=== PATIENT | male | born 1965 | race Caucasian/White ===

== ENCOUNTER 2018-07-21 06:56 | Observation (INO) ==
[2018-07-21] MEDS ORDERED: Bupivacaine/Epinephrine Inj 0.25% 50 ML Vial ONE (07:01)
[2018-07-21] MEDS ORDERED: Ketamine Inj 50 MG/5 ML Syringe IV.PUSH ONE (07:39)
[2018-07-21] MEDS ORDERED: Famotidine PF Inj 20 MG/2 ML Vial ONE (07:44)
[2018-07-21] MEDS ORDERED: Sodium Chlor 0.9% Inj 250 ML ONE (07:45)
[2018-07-21] MEDS ORDERED: Metoprolol Tartrate 25 MG Tablet PO ONE (07:49)
[2018-07-21] MEDS ORDERED: Famotidine PF Inj 20 MG/2 ML Vial IV.PUSH ONE (08:00)
[2018-07-21] MEDS ORDERED: ceFAZolin 2 GM Premix Inj 2 GM/50 ML PIGGYBACK IV.SIG SCH (08:00)
[2018-07-21] MEDS ORDERED: Vancomycin Inj 1,000 MG in Sodium Chlor 0.9% Inj 250 ML IV.SIG SCH (08:00)
[2018-07-21] MEDS ORDERED: Sodium Chlor 0.9% Inj 500 ML IV.SIG SCH (08:00)
[2018-07-21] MEDS ORDERED: Neostigmine Inj 5 MG/5 ML Syringe IV.PUSH ONE (09:30)
[2018-07-21] MEDS ORDERED: Lidocaine PF 1% Inj 5 ML Syringe OTHER ONE (09:30)
[2018-07-21] MEDS ORDERED: Glycopyrrolate Inj 1 MG/5 ML Syringe IV.PUSH ONE (09:30)
[2018-07-21] MEDS ORDERED: Phenylephrine/NS 1000 MCG/10ML Syringe IV.PUSH ONE (09:30)
--- NOTE | 2018-07-21 11:39 | P.OP ---
Preoperative Diagnosis: Herniated nucleus pulposus C4-5, central. Spinal cord compression, C4-5. Status post ACDF C5-6 and C6-7. Cervical radiculopathy Postoperative Diagnosis: Same Date of procedure: 07/21/18 Procedure: Anterior cervical discectomy decompression with bilateral foraminotomies, C4-5. Left anterior iliac crest bone graft Anesthesia: GETA Surgeon: Saravanan Martin MD Regional Clinical Research Associate: RU Maria Operation and Findings: EBL: 25 cc INDICATIONS: This patient is a 53-year-old male with significant neck and arm pain. Investigative studies show evidence of a previously fused C5-6 and C6-7 levels. There is evidence of a central disc herniation at C4-5 with spinal cord compression. He presents for surgical treatment. NOTE: Katty Maria PA-C was present for the entire surgical procedure as my first dyer. In my medical opinion her skill and care was necessary for proper management of this patient PROCEDURE: The patient was brought to the operating room and anesthetized in the supine position. This patient was positioned supine on the radiolucent table. All pressure points were protected in the anterior cervical spine and iliac crest was scrubbed with alcohol followed by Hibiclens followed by ChloraPrep. A timeout was done and antibiotics were given within 1 hour time window. Lateral radiographic images were used identifying the proper level. A right anterior incision was made in line with skin creases. The platysma was opened in line with the incision. Deep dissection continued in the interval between the carotid sheath and the esophagus. The longus-coli muscles were lifted on both sides and retractors were positioned allowing good exposure. Lateral radiographic images were used to identify the proper level. [place] style interosseous pins were placed at C4 and C5 allowing exposure to that level. The microscope was rolled into the field. A total discectomy was accomplished and posterior osteophytes were removed. The posterior longitudinal ligament and annulus was taken down. Bilateral foraminotomies were accomplished. The endplates were squared up anticipating later bone grafting. A blunt probe could be placed out each foramen without evidence of nerve root compromise. The left iliac crest was approached. A small stab incision was made allowing percutaneous access to the anterior iliac crest. Multiple cores of cancellous bone were harvested and taken to the back table to be used for later bone grafting. The wound was irrigated anesthetized and closed with 4-0 Vicryl followed by Dermabond. The case was turned over to Dr. Azeem Martin for fusion and instrumentation per his dictation. FINDINGS: There was evidence of a moderate to large central disc herniation posterior to the annulus and posterior longitudinal ligament creating spinal cord compression. The decompression was very satisfactory. There was no complication that was appreciated NOTE: This surgery was performed in 2 parts. The first part was the neurosurgical decompression performed under the variable power stereo microscope by the undersigned in addition to the bone graft. The second portion of the surgery will be performed by the orthopedic spine component by co -surgeon, Dr. Azeem Martin for the anterior fusion with interbody cage and anterior plate. The skill of 2 surgeons was necessary to perform distinct separate procedural services as dictated above and dictated in the following operative note by Dr. Azeem Martin.
--- NOTE | 2018-07-21 12:45 | ECHRPT ---
Indication: CHEST PAIN CONCLUSIONS The left ventricular systolic function is normal with an estimated ejection fraction in the range of 60-65%. Normal left ventricular size. Wall thickness is normal. No regional wall motion abnormalities are present. BP: / HR: Rhythm: Sinus MEASUREMENTS (Male / Female) Normal Values Technical Quality:Good 2D ECHO LV Diastolic Diameter PLAX 4.8 cm 4.2 - 5.9 / 3.9 - 5.3 cm LV Systolic Diameter PLAX 3.3 cm IVS Diastolic Thickness 1.3 cm 0.6 - 1.0 / 0.6 - 0.9 cm LVPW Diastolic Thickness 1.3 cm 0.6 - 1.0 / 0.6 - 0.9 cm LV Relative Wall Thickness 0.5 LVOT Diameter 2.0 cm LV Ejection Fraction MOD 4C 63.2 % LV Ejection Fraction 4C AL 64.6 % M-MODE Aortic Root Diameter MM 3.2 cm LA Systolic Diameter MM 3.0 cm LA Ao Ratio MM 0.9 AV Cusp Separation MM 2.0 cm DOPPLER AV Peak Velocity 109.0 cm/s AV Peak Gradient 4.8 mmHg LVOT Peak Velocity 88.8 cm/s LVOT Peak Gradient 3.2 mmHg AV Area Cont Eq pk 2.6 cm MV Area PHT 4.5 cm Mitral E Point Velocity 84.4 cm/s Mitral A Point Velocity 68.3 cm/s Mitral E to A Ratio 1.2 LV E' Lateral Velocity 6.8 cm/s Mitral E to LV E' Lateral Ratio 12.4 LV E' Septal Velocity 6.4 cm/s Mitral E to LV E' Septal Ratio 13.1 PV Peak Velocity 92.3 cm/s PV Peak Gradient 3.4 mmHg FINDINGS LEFT VENTRICLE The left ventricular systolic function is normal with an estimated ejection fraction in the range of 60-65%. Normal left ventricular size. Wall thickness is normal. No regional wall motion abnormalities are present. RIGHT VENTRICLE Normal right ventricular size and systolic function. LEFT ATRIUM The left atrial size is normal. RIGHT ATRIUM The right atrial size is normal. ATRIAL SEPTUM Normal atrial septal thickness without atrial level shunting by limited color doppler interrogation. AORTA The aortic root and proximal ascending aorta are normal in size on limited imaging. MITRAL VALVE Structurally normal mitral valve. No mitral valve stenosis or regurgitation. AORTIC VALVE Trileaflet aortic valve. No aortic valve stenosis or regurgitation. TRICUSPID VALVE Structurally normal tricuspid valve. No tricuspid valve stenosis or regurgitation. PULMONARY VALVE The pulmonary valve is not well visualized. VESSELS The inferior vena cava is normal in size. PERICARDIUM No pericardial effusion. Zach Merritt MD, FACC (Electronically Signed) Final Date:21 July 2018 12:44
[2018-07-21] MEDS ORDERED: clonazePAM 0.5 MG Tablet PO PRN (12:48)
--- NOTE | 2018-07-21 12:50 | XR ---
EXAM DATE: 07/21/2018 12:00 AM EDT AGE/SEX: 53 years / Male INDICATIONS: Herniated disk, hardware placement. CLINICAL DATA: This is the patient's initial encounter. Patient reports that signs and symptoms have been present for 1 day and indicates a pain score of 0/10. MEDICAL/SURGICAL HISTORY: None. None. COMPARISON: No prior exams available for comparison. FINDINGS: The patient is status post anterior cervical fusion at what appears to be the C4-5 level. There is miranda ne grafting material and 2 small markers in the interspace. Temperature probe and endotracheal tube a re present. CONCLUSION: There is post anterior cervical fusion at what appears to be the C4-5 level. Electronically signed by: Vasile Geiger MD 07/21/2018 12:48 PM EDT
[2018-07-21] MEDS ORDERED: Zolpidem Tartrate 5 MG Tablet PO PRN (12:51)
[2018-07-21] MEDS ORDERED: Post-op Orders (for Pharmacy) OTHER STA (12:51)
[2018-07-21] MEDS ORDERED: Bisacodyl 10 MG Supp RECTAL PRN (12:51)
--- NOTE | 2018-07-21 13:02 | P.BOP ---
- Preoperative Diagnosis (1) Herniated nucleus pulposus, cervical - Postoperative Diagnosis (1) Herniated nucleus pulposus, cervical Date of procedure: 07/21/18 Procedure: C4-5 AIF,ACC,ASI Anesthesia: GETA Surgeon: Azeem Martin MD Marketing Consultant: Danni Neal Estimated blood loss (mL): 50 Condition: stable Disposition: PACU
[2018-07-21] MEDS ORDERED: fentaNYL Citrate Inj 100 MCG/2 ML Ampul ONE (13:26)
[2018-07-21] MEDS ORDERED: *Meperidine Inj 25 MG/ML Vial PERIprocedural Use ONLY ONE (13:40)
[2018-07-21] MEDS ORDERED: *Ondansetron Inj 4 MG/2 ML Vial PERIprocedural Use ONLY ONE (13:41)
[2018-07-21] MEDS ORDERED: *morphine SULFATE 4 MG/ML PERIprocedure ONLY ONE (13:59)
--- NOTE | 2018-07-21 15:03 | MP ---
cc: Azeem Martin MD Aga Corona DATE OF OPERATION: 07/21/2018 PREOPERATIVE DIAGNOSES: 1. C4-C5 herniated nucleus pulposus, osteophyte disk complex. 2. Status post C5-C6 anterior cervical diskectomy and fusion 2002. 3. Status post C6-C7 anterior cervical diskectomy anterior implantation [address] Dow. 4. Cervical spine degenerative disk disease and osteoarthritis. 5. Right greater than left cervical radiculitis with right upper extremity weakness. POSTOPERATIVE DIAGNOSES: 1. C4-C5 herniated nucleus pulposus, osteophyte disk complex. 2. Status post C5-C6 anterior cervical diskectomy and fusion 2002. 3. Status post C6-C7 anterior cervical diskectomy anterior implantation [address] Dow. 4. Cervical spine degenerative disk disease and osteoarthritis. 5. Right greater than left cervical radiculitis with right upper extremity weakness. PROCEDURE PERFORMED: C4-C5 anterior interbody fusion, C4-C5 ACC anterior cervical cage; C4-C 5 SpineNet Rhausler anterior spine rotation. SURGEON: Azeem Martin MD SEISMOGRAPH OPERATOR: STEPHIE Trinidad ESTIMATED BLOOD LOSS: 50 mL for the entire case. ANESTHESIA: General. DRAINS: None. COMPLICATIONS: None. SPECIMENS: None. PLAN: Activities as per orders. PROCEDURE: Saravanan Martin and myself were cosurgeons. Dr. Saravanan Martin performed C4-C5 exposure and decompression using the operating microscope. He performed the neurosurgical decompression and C4-C5 anterior cervical diskectomy and decompression, also performed anterior iliac crest bone grafting. I was not present for his portion of the procedure. As the cosurgeon I performed the above-mentioned operative procedure. My assurance assistant, Danni Neal PA-C, was present for the entire surgical case. She was medically necessary for my portion of the case because of the complexity of the case and to facilitate the performance of the procedure. The DIETARY SERVER at the back table did not have the skill set for this case to manipulate the instruments, e.g. multiple different types of soft tissue retractors, trial implants and permanent implants. Following Dr. Saravanan Martin's surgical procedure, the endplates were prepared for fusion at C4-C5. The hyaline cartilage endplates were removed using angled curettes and burs. A seven 10 x 12 ACCK were placed in the interspace. Anterior crest bone grafting was used under fluoroscopic guidance for interbody fusion at C4-C5. Scar tissue and anterior osteophytes were removed at the C4-C5 interspace. They were removed with a sharp instrumentations and with rongeurs of burs. A 25 mm length SpineNet Rhausler plate was used for anterior spinal instrumentation. Initially 2 tacks were used to position the plate appropriately. It was also contoured to the patient's normal cervical lordosis. Under fluoroscopic guidance the plate was found to be in satisfactory position. Two screws were used in the body of C4 and C5. Each screw was drilled and each screw was 14 mm length, 4.0 mm outer diameter fixed angle screws. Each screw was appropriately inserted into the vertebral bodies and each screw head was appropriately locked to the plate. Intraoperative fluoroscopy AP and lateral plane confirmed satisfactory position of bone graft at C4-C5 and satisfactory position of the SpineNet ACC cage at C4-C5 and satisfactory position of instrumentation at C4-C5. The wound was irrigated with copious amounts of sterile saline antibiotic solution. The wound itself was dry. It was closed in multiple layers using 3-0 Vicryl suture. Skin was approximated with running subcuticular 4-0 Vicryl suture. Dermabond placed over the incision. Sterile dressings were applied. The patient was placed in a Watson cervical brace. The patient tolerated the procedure well and was taken to the recovery room in stable and satisfactory condition. MD VINICIUS SunG/deborah , 12:56 PM , 01:08 PM DES
--- NOTE | 2018-07-21 15:23 | ECG ---
Date Performed: 07/21/2018 Time Performed: 08:14:24 PTAGE: 53 years EKG: Sinus rhythm NORMAL ECG NO PREVIOUS TRACING DOCTOR: Asuncion Jensen Interpretating Date/Time 07/21/2018 15:22:55
[2018-07-21] MEDS: Methocarbamol 500 MG Tablet PO SCH (17:40)
[2018-07-21] MEDS: Senna/Docusate Sodium 8.6/50 MG Tablet PO SCH (21:05)
[2018-07-21] MEDS: Morphine Inj 4 MG/ML Vial IV.PUSH PRN (21:05)
[2018-07-22] MEDS ORDERED: Phenol 1.4% 180 ML Spray Bottle OROPHARYNG PRN (00:15)
[2018-07-22] MEDS: Methocarbamol 500 MG Tablet PO SCH (01:44)
[2018-07-22] MEDS: Morphine Inj 4 MG/ML Vial IV.PUSH PRN (04:07)
[2018-07-22 04:14] VITALS: RESP 18
--- NOTE | 2018-07-22 07:00 | P.PNOP ---
Subjective Interval history: pt complains of post operative neck pain and sore throat states his arm pain is improved but did have mild numbness and tingling involving his left hand last night denies any chest pain, no SOB Physical Exam Vital signs: Vital Signs 07/21/18 07:45 07/21/18 13:12 07/21/18 13:15 Temperature 97.6 F 97.4 F L Pulse Rate 80 90 91 H Respiratory Rate 24 20 17 Blood Pressure 118/75 133/80 131/77 Pulse Oximetry 99 94 L 93 L 07/21/18 13:30 07/21/18 13:45 07/21/18 14:00 Temperature Pulse Rate 90 87 92 H Respiratory Rate 15 16 14 Blood Pressure 139/85 125/69 125/73 Pulse Oximetry 94 L 96 95 07/21/18 14:12 07/21/18 16:00 07/21/18 20:00 Temperature 98.2 F 97.4 F L 97.5 F L Pulse Rate 90 91 H 94 H Respiratory Rate 15 20 20 Blood Pressure 127/73 108/60 105/64 Pulse Oximetry 95 92 L 95 07/22/18 00:00 07/22/18 04:00 Temperature 97.5 F L 97.6 F Pulse Rate 75 80 Respiratory Rate 20 18 Blood Pressure 113/63 104/63 Pulse Oximetry 92 L 95 Intake & Output 07/21/18 07/21/18 07/22/18 06:59 18:59 06:59 Intake Total 400 / 400 300 / 300 Output Total 400 / 400 1000 / 1000 Balance 0 / 0 -700 / -700 Weight 100 kg 100 kg Intake: IV 400 / 400 300 / 300 LR 1000 mL Inj 1,000 ML @ 30 300 / 300 mls/hr IV.SIG .Q24H PABLO Rx#: [id number] Ancef Inj 1,000 MG In NS Inj 100 / 100 300 / 300 100 ML @ 200 mls/hr IV.SIG Q6H PABLO Rx#:[id number] Output: Urine 350 / 350 1000 / 1000 Estimated Blood Loss 50 / 50 Other: Date of Last Bowel Movement 07/20/18 07/20/18 Weight On Admission 100 kg Narrative: also seen by Dr. Azeem Martin family member sleeping in room [place] collar in place dressing dry and intact motor is +5/5 to UE Results - Imaging Impressions Cervical Spine X-Ray 07/21/18 00:00 CONCLUSION: There is post anterior cervical fusion at what appears to be the C4-5 level. Assessment and Plan - Assessment and Plan POD # 1 s/p C 4-5 ACDF [place] collar x 8 weeks d/c evelio, put on percocet 5 mg for here and will be discharged on percocet 7.5 mg (hx of chronic pain, has previously been on percocet 10 and MS) follow up in office as scheduled orthopedically stable
[2018-07-22] MEDS: Senna/Docusate Sodium 8.6/50 MG Tablet PO SCH (08:27)
[2018-07-22 08:59] VITALS: BP 117/62; PULSE 88; TEMP 98.2; O2SAT 92
--- NOTE | 2018-07-22 08:59 | P.CON ---
History of Present Illness Service: [facility] Consult date: 07/22/18 Requesting Physician: Saravanan Martin Reason for Consult: MEDICAL MANAGEMENT Primary Care Provider: Aga Corona Chief Complaint: arm numbness, back pain History of Present Illness: Mr. Gordon is a 53-year-old man with significant past medical history of central disc herniation at C4-C5 with spinal cord compression. Patient was admitted for elective surgery, underwent anterior cervical discectomy decompression with bilateral foraminotomies, C4-5 and Left anterior iliac crest bone graft on 07/21. Patient has cervical collar in place, complaints of some numbness to left arm in anterior neck pain. Patient with significant past medical history of sleep apnea does not use CPAP, hypertension, recent intermittent angina. Indicates that he went to see his primary care physician about 3 weeks ago due to angina and was prescribed nitro as needed. He had an EKG done that was negative. His last episode of chest discomfort was 3 days ago, he has not had any episodes during this hospitalization. He is due to see a special education educational assistant in another week. Because of reported angina, anesthesia order an echocardiogram. Echocardiogram was done, EF 60-65%, no abnormalities noted. Indicates that chest pain is usually at rest, and was relieved by nitro, no radiation, no other associated symptoms. EKG was done preop which was negative. Indicates he has history of hypertension but does not take his medication regularly. At this time, he denies any chest pain, no shortness of breath. No recent fever, no chills. Does have urinary frequency, complaining of constipation at this time. Indicates that he quit smoking about a week ago. No significant cough, no wheezing. He has been cleared for discharge today. Hospitalist services are requested for medical management. Review of Systems All other systems reviewed negative except as stated in HPI PMFSH - History History Provided By: Patient - Medical History Medical History: Medical History (Last Updated 07/22/18 @ 10:52 by PAOLO Saenz) Angina at rest Anxiety Arthritis Back pain Bipolar 2 disorder Chest pain Depression Dizziness Fibromyalgia Hypertension Joint pain Neck pain Shortness of breath Sleep apnea Wears glasses - Surgical History Surgical History: Surgical History (Last Reviewed 07/22/18 @ 08:59 by PAOLO Saenz) History of carpal tunnel surgery of left wrist History of vertebroplasty Hx of fusion of cervical spine - Family History Family History: Family History (Last Updated 07/22/18 @ 10:53 by PAOLO Saenz) Mother Diabetes Alzheimer's dementia Father Colon cancer Prostate cancer - Social History I have reviewed the patient's Social History: Yes - Tobacco History Second Hand Smoke Exposure: Yes Tobacco Use In Past 30 Days: Yes Smoking Status: Former smoker Tobacco Type: Cigarettes (Quit smoking 1 week ago, smoked half a pack for 25+ years) - Alcohol History How Often Do You Have a Drink Containing Alcohol: 2 to 4 times a month - Substance Use History Substance History: No History of Abuse - Travel History Recent Travel in the [place] Within the Last 8 Weeks: No Recent Travel Out of the Country Within the Last 8 Weeks: No - Immunization History Hx Influenza Vaccine This Season: No Medications and Allergies Active Medications: Active Medications Al Hydroxide/Mg Hydroxide (Milk Of Magnesia Liq) 30 ml PO BID PRN PRN Reason: Mild Constipation Bisacodyl (Dulcolax Supp) 10 mg RECTAL DAILY PRN PRN Reason: SEVERE CONSITIPATION Clonazepam (Klonopin) 0.5 mg PO HS PRN PRN Reason: Sleep Last Admin: 07/21/18 21:05 Dose: 0.5 mg Cyclobenzaprine HCl (Flexeril) 5 mg PO Q8HR [facility] Last Admin: 07/22/18 06:19 Dose: 5 mg Fluoxetine HCl (Prozac) 40 mg PO DAILY [facility] Last Admin: 07/22/18 08:26 Dose: 40 mg Sodium Chloride (Ns Inj) 500 mls @ 30 mls/hr IV.SIG .Q10H [facility] Last Admin: 07/22/18 01:07 Dose: Not Given Cefazolin Sodium/Dextrose (Ancef 2 Gm Premix Inj) 2 gm in 50 mls @ 100 mls/hr IV.SIG SPLICER HELPER [facility] Stop: 07/25/18 07:59 Vancomycin HCl 1,000 mg/ (Sodium Chloride) 250 mls @ 250 mls/hr IV.SIG SPLICER HELPER [facility] Stop: 07/24/18 07:52 Lactulose (Lactulose Liq) 30 ml PO DAILY PRN PRN Reason: SEVERE CONSITIPATION Lisinopril (Prinivil) 40 mg PO DAILY [facility] Last Admin: 07/22/18 08:27 Dose: 40 mg Miscellaneous Information ([facility] [place] Nursing Information) 0 each OTHER UNSCH PRN PRN Reason: SEE LABEL COMMENTS Stop: 07/22/18 13:15 Ondansetron HCl (Zofran Odt) 4 mg PO Q6H PRN PRN Reason: NAUSEA OR VOMITING Oxycodone/Acetaminophen (Percocet 5/325 Mg) 1 tab PO Q4H PRN PRN Reason: PAIN LESS THAN 5 ON SCALE Oxycodone/Acetaminophen (Percocet 5/325 Mg) 2 tab PO Q6H PRN PRN Reason: PAIN SCALE 5 TO 10 Senna/Docusate Sodium (Shelia-Colace) 1 tab PO BID [facility] Last Admin: 07/22/18 08:27 Dose: 1 tab Sennosides (Senokot) 17.2 mg PO BID PRN PRN Reason: Moderate Constipation Sodium Chloride (Ns Flush) 2 ml IV.FLUSH BID [facility] Last Admin: 07/22/18 08:31 Dose: 2 ml Sodium Chloride (Ns Flush) 2 ml IV.FLUSH PRN PRN PRN Reason: FLUSH AFTER USING IV ACCESS Throat Lozenges (Chloraseptic [place]) 1 spray OROPHARYNG Q2H PRN PRN Reason: SORE THROAT Last Admin: 07/22/18 04:07 Dose: 1 spray Allergies Allergy/AdvReac Type Severity Reaction Status Date / Time chlorhexidine Allergy Hives Verified 07/21/18 07:42 Home Medications Medication Instructions Recorded Confirmed Type clonazepam [Klonopin] 0.5 mg PO HS PRN 07/20/18 07/21/18 History fluoxetine [Prozac] 40 mg PO DAILY 07/20/18 07/21/18 History lisinopril 40 mg PO DAILY 07/20/18 07/21/18 History methocarbamol [Robaxin] 500 mg PO QID 07/20/18 07/21/18 History Physical Exam Vital signs: Vital Signs 07/21/18 13:12 07/21/18 13:15 07/21/18 13:30 Temperature 97.4 F L Pulse Rate 90 91 H 90 Respiratory Rate 20 17 15 Blood Pressure 133/80 131/77 139/85 Pulse Oximetry 94 L 93 L 94 L 07/21/18 13:45 07/21/18 14:00 07/21/18 14:12 Temperature 98.2 F Pulse Rate 87 92 H 90 Respiratory Rate 16 14 15 Blood Pressure 125/69 125/73 127/73 Pulse Oximetry 96 95 95 07/21/18 16:00 07/21/18 20:00 07/22/18 00:00 Temperature 97.4 F L 97.5 F L 97.5 F L Pulse Rate 91 H 94 H 75 Respiratory Rate 20 20 20 Blood Pressure 108/60 105/64 113/63 Pulse Oximetry 92 L 95 92 L 07/22/18 04:00 07/22/18 08:27 Temperature 97.6 F Pulse Rate 80 Respiratory Rate 18 18 Blood Pressure 104/63 Pulse Oximetry 95 Intake & Output 07/21/18 07/22/18 07/22/18 18:59 06:59 18:59 Intake Total 400 / 400 300 / 300 Output Total 400 / 400 1000 / 1000 Balance 0 / 0 -700 / -700 Weight 100 kg 100 kg Intake: IV 400 / 400 300 / 300 LR 1000 mL Inj 1,000 ML @ 30 300 / 300 mls/hr IV.SIG .Q24H PABLO Rx#: [id number] Ancef Inj 1,000 MG In NS Inj 100 / 100 300 / 300 100 ML @ 200 mls/hr IV.SIG Q6H PABLO Rx#:[id number] Output: Urine 350 / 350 1000 / 1000 Estimated Blood Loss 50 / 50 Other: Date of Last Bowel Movement 07/20/18 07/20/18 Weight On Admission 100 kg Narrative: GENERAL: Well-nourished, well-developed patient in no apparent distress. SKIN: Warm and dry. HEAD: Atraumatic. Normocephalic. EYES: Pupils equal and round. No scleral icterus. No injection or drainage. ENT: No nasal bleeding or discharge. Mucous membranes pink and moist. NECK: Trachea midline. No JVD. Cervical collar in place, anterior neck dressing intact and dry. CARDIOVASCULAR: S1-S2, occasionally irregular. No murmurs, no rubs, no gallops. RESPIRATORY: No accessory muscle use. Clear to auscultation. Breath sounds equal bilaterally. GASTROINTESTINAL: Abdomen soft, non-tender, nondistended. Hepatic and splenic margins not palpable. MUSCULOSKELETAL: Extremities without clubbing, cyanosis, or edema. No obvious deformities. NEUROLOGICAL: Awake and alert. No obvious cranial nerve deficits. Motor grossly within normal limits. Five out of 5 muscle strength in the arms and legs. Normal speech. PSYCHIATRIC: Appropriate mood and affect; insight and judgment normal. Assessment and Plan - Assessment (1) Herniated nucleus pulposus, cervical Code(s): M50.20 - Other cervical disc displacement, unspecified cervical region Status: Acute (2) Hypertension Code(s): I10 - Essential (primary) hypertension Status: Chronic (3) Sleep apnea Code(s): G47.30 - Sleep apnea, unspecified Status: Chronic (4) Angina at rest Code(s): I20.8 - Other forms of angina pectoris Status: Chronic (5) Chronic back pain Code(s): M54.9 - Dorsalgia, unspecified; G89.29 - Other chronic pain Status: Chronic - Plan 53-year-old with significant neck and arm pain, findings of central disc herniation at C4-C5 with spinal cord compression. [facility] services requested for medical management. Central disc herniation at C4-5 with spinal cord compression, s/p C 4-5 ACDF 07/21 -Continue with [place] collar for 8 weeks Continue with pain management Postop care Patient has been cleared for discharge Angina at rest, has been ongoing for a couple of weeks. Negative EKG. Echo done postop, EF 60-65%, no significant abnormalities Patient to follow-up with cardiology -Continue nitro as needed Encouraged to continue abstaining from cigarette smoking -Educated to be compliant with taking antihypertensives His sleep apnea, has not used CPAP in 10 years Recommended that he follow-up with PCP and have repeat sleep study to be refitted with CPAP. Possible underlying COPD, recently quit smoking Continue with inhaler at home, not sure of name. He did not bring to hospital Encouraged to continue abstaining from smoking. Hypertension, well controlled Continue with lisinopril, compliance emphasized Chronic back pain History of previous back surgeries -Continue with present pain management Plan of care discussed with patient and , questions answered in detail. Patient is stable for discharge, he can follow-up with cardiology and PCP as outpatient. Recommended to continue abstaining from smoking. (2) Hypertension Qualifiers: Hypertension type: essential hypertension Qualified Code(s): I10 - Essential (primary) hypertension (3) Sleep apnea Qualifiers: Sleep apnea type: unspecified type Qualified Code(s): G47.30 - Sleep apnea, unspecified (5) Chronic back pain Qualifiers: Back pain location: low back pain Back pain laterality: unspecified Sciatica presence: unspecified whether sciatica present Qualified Code(s): M54.5 - Low back pain; G89.29 - Other chronic pain
[2018-07-22] MEDS ORDERED: Lisinopril 20 MG Tablet PO SCH (09:00)
[2018-07-22] MEDS ORDERED: FLUoxetine 20 MG Capsule PO SCH (09:00)
== END 2018-07-22 12:00 | disposition home or self-care (01) ==
LOC: INTOOBSV 06:56 → HSDI 06:56 → N06 14:25
PROVIDERS: ADMIT Orthopaedic Surgery Orthopaedic Surgery of the Spine; ATTEND Orthopaedic Surgery Orthopaedic Surgery of the Spine

== ENCOUNTER 2018-08-02 08:31 | Observation (INO) ==
[2018-08-02] MEDS ORDERED: Metoprolol Tartrate 25 MG Tablet PO ONE (09:24)
[2018-08-02] MEDS ORDERED: Sodium Chlor 0.9% Inj 500 ML IV.SIG SCH (10:00)
[2018-08-02] MEDS ORDERED: ceFAZolin 2 GM Premix Inj 2 GM/50 ML PIGGYBACK IV.SIG SCH (10:00)
[2018-08-02] MEDS ORDERED: Vancomycin Inj 1,000 MG in Sodium Chlor 0.9% Inj 250 ML IV.SIG SCH (10:00)
[2018-08-02] MEDS ORDERED: HYDROmorphone PF Inj 2 MG/ML Vial ONE (10:20)
[2018-08-02] MEDS ORDERED: Ketamine Inj 50 MG/5 ML Syringe IV.PUSH ONE (10:20)
[2018-08-02] MEDS ORDERED: Bupivacaine/Epinephrine Inj 0.25% 50 ML Vial ONE (10:35)
[2018-08-02] MEDS ORDERED: Phenylephrine/NS 1000 MCG/10ML Syringe IV.PUSH ONE (12:33)
[2018-08-02] MEDS ORDERED: Lidocaine PF 1% Inj 5 ML Syringe OTHER ONE (12:33)
[2018-08-02] MEDS ORDERED: Normosol-R pH 7.4 Inj 1,000 ML IV.CONT ONE (12:33)
[2018-08-02] MEDS ORDERED: fentaNYL Citrate Inj 100 MCG/2 ML Ampul ONE ×2 (13:08→14:54)
[2018-08-02] MEDS ORDERED: Nitroglycerin SL (Override) 0.4 MG Tab SL PRN (14:40)
[2018-08-02] MEDS ORDERED: Bisacodyl 10 MG Supp RECTAL PRN (14:41)
[2018-08-02] MEDS ORDERED: Morphine Inj 4 MG/ML Vial IV.PUSH PRN (14:41)
[2018-08-02] MEDS ORDERED: oxyCODONE/Acetaminophen 10/325 Tablet PO PRN (14:41)
[2018-08-02] MEDS ORDERED: Post-op Orders (for Pharmacy) OTHER STA (14:41)
[2018-08-02] MEDS ORDERED: *Labetalol HCl Inj 100 MG/20 ML Vial PERIprocedural Use ONLY IV.PUSH ONE (14:44)
--- NOTE | 2018-08-02 14:48 | P.OP ---
- Preoperative Diagnosis (1) Herniated nucleus pulposus, cervical Preoperative Diagnosis: Status post anterior cervical decompression and fusion C5-C7, remote. History of anterior cervical decompression and fusion with instrumentation, C4-5 , recent. Cervical spinal stenosis. Herniated nucleus pulposus cervical spine. Cervical radiculopathy Postoperative Diagnosis: Same Date of procedure: 08/02/18 Procedure: Posterior cervical fusion C4-5. Posterior cervical segmental single level instrumentation, C4-5. Left posterior iliac crest bone graft Anesthesia: GETA Surgeon: Saravanan Martin MD Nuclear Equipment Design Engineer: RU Maria Operation and Findings: EBL: 100 cc INDICATIONS: This patient is a 53-year-old white male. Years ago he came to 2 separate cervical surgeries for purpose of ACDF at C5-6 and then subsequently at C6-7. There is retained hardware at the C6-7 level. The patient developed an unstable level at C4-5 with a central disc herniation. He is now approximately 2 weeks status post ACDF at the C4-5 level with an interbody cage and anterior plate. He now presents for staged posterior cervical fusion across the same level. This patient is at risk of a failed fusion because of multiple previous cervical spine surgeries. For that reason, he is having posterior cervical fusion to augment and increase the chance of success over the ACDF at that level NOTE: Katty Maria PA-C was present for the entire surgical procedure as my field administrative assistant. In my medical opinion her skill and care was necessary for proper management of this patient PROCEDURE: The patient was brought the operating room and anesthetized in the supine position. The patient was positioned prone on a Wisam table. The arms were placed out along the side and taping was utilized to ensure adequate visualization. AP and lateral radiographic images were used identifying the proper level and allowing excellent exposure for purpose of the cervical fusion. A timeout was done and antibiotics were given within a routine time window. A small incision was made over the left iliac crest bone graft. A series of cores of bone graft were harvested with a special percutaneous device. The bone graft was taken to the back table to be mixed with stem cell bone graft for the later part of the case Using AP and lateral radiographs, skin markings were made. On the right side and 18-gauge spinal needle was placed down to the proper level. The left side a separate incision was made and we used the [employer] system. Exposure was afforded down to the proper level. Under visualization, a chisel was placed down to the C 4 5 level. This was confirmed under radiographs to be in proper position. Exposure was satisfactory. This is placed down into the facet joint at that level. A decorticating device was utilized decorticating the bone of the facet above and below. A retractor was placed down over the access chisel allowing exposure to the joint and exposure to the articular cartilage. A drilling system was utilized removing cartilage and bone this region followed by a rasp. On the back table demineralized bone matrix was mixed with Nucel stem cells and a autogenous bone graft. A combination of both these were then paced placed into proper cages. The cages were impacted into the proper position and checked again under AP and lateral fluoroscopic images. A transfixation screw was placed into the cage having excellent fixation into the facet joint of the level above. The back side of the cage was filled with additional bone graft which was tamped into position. The retractor was removed. On the right side a separate incision was made. Using the likewise sequence of access to the same level, an incision was made allowing visualization for placement of an access chisel which was placed into the joint followed by decortication with excellent visualization. A final retractor was positioned holding this while we were able to drill and use the rasp. The joint was prepared and we created a space for the cage. The cage was filled with bone graft and impacted in proper position. A transfixation screw was fixated at that time and alignment was satisfactory. Additional bone graft placed along the posterior aspect of the cage and the facet joint and was tamped into position.. Intraoperative x-rays in AP and lateral plane showed excellent positioning and stabilization . The wound was irrigated copiously. Hemostasis was controlled. The fascia was closed with interrupted Vicryl suture skin and subcutaneous tissue with 3-0 Vicryl suture followed by Dermabond. The sponge count needle counts and sponge counts were all correct. The patient tolerated the procedure well as taken to the recovery room in satisfactory condition. FINDINGS: There was mild instability of the joints at this level. Cage position was felt to be very satisfactory. There is no complication that was appreciated.
[2018-08-02] MEDS ORDERED: *Meperidine Inj 25 MG/ML Vial PERIprocedural Use ONLY ONE (15:10)
[2018-08-02] MEDS ORDERED: *morphine SULFATE 4 MG/ML PERIprocedure ONLY ONE (16:14)
[2018-08-02] MEDS: oxyCODONE/Acetaminophen 10/325 Tablet PO PRN ×2 (17:10→21:27)
[2018-08-02] MEDS: Methocarbamol 500 MG Tablet PO SCH ×2 (18:23→20:19)
[2018-08-02] MEDS: Multivitamin/Minerals Therapeutic Tablet PO SCH (20:19)
[2018-08-02] MEDS: Senna/Docusate Sodium 8.6/50 MG Tablet PO SCH (20:19)
[2018-08-02] MEDS ORDERED: Temazepam 15 MG Capsule PO PRN (21:00)
[2018-08-02] MEDS ORDERED: clonazePAM 0.5 MG Tablet PO PRN (21:00)
[2018-08-02 21:16] VITALS: RESP 18
[2018-08-03] MEDS: oxyCODONE/Acetaminophen 10/325 Tablet PO PRN ×3 (01:27→11:22)
[2018-08-03] MEDS ORDERED: FLUoxetine 20 MG Capsule PO SCH (09:00)
[2018-08-03] MEDS ORDERED: Lisinopril 20 MG Tablet PO SCH (09:00)
--- NOTE | 2018-08-03 10:57 | P.PNOP ---
Subjective Interval history: Just finished vomiting 5 minutes before I entered the room. Patient states his neck is 'ok'. He was having a hard time swallow with the brace but when loosens , he 'is fine'. No new arms complaints. No chest pain or shortness of breath. Physical Exam Vital signs: Vital Signs 08/02/18 14:41 08/02/18 14:42 08/02/18 14:45 Temperature 98.2 F 98 F 98 F Pulse Rate 102 H 10 L 98 H Respiratory Rate 14 14 14 Blood Pressure 169/104 H 146/105 H 181/105 H Pulse Oximetry 95 92 L 97 08/02/18 15:00 08/02/18 15:15 08/02/18 15:30 Temperature 98 F 98 F 98 F Pulse Rate 85 89 87 Respiratory Rate 14 14 14 Blood Pressure 155/101 H 151/94 H 136/94 H Pulse Oximetry 95 95 96 08/02/18 15:45 08/02/18 16:00 08/02/18 16:30 Temperature 98 F 98 F 98 F Pulse Rate 91 H 99 H 96 H Respiratory Rate 14 14 14 Blood Pressure 130/85 138/90 116/69 Pulse Oximetry 97 95 97 08/02/18 19:49 08/02/18 23:48 08/03/18 00:15 Temperature 97.3 F L 98.4 F Pulse Rate 95 H 92 H Respiratory Rate 18 18 18 Blood Pressure 117/59 L 119/75 Pulse Oximetry 93 L 94 L 08/03/18 04:04 08/03/18 08:00 Temperature 97.4 F L 97.4 F L Pulse Rate 85 87 Respiratory Rate 18 18 Blood Pressure 104/56 L 128/75 Pulse Oximetry 94 L 95 Intake & Output 08/02/18 08/03/18 08/03/18 18:59 06:59 18:59 Intake Total 1360 / 1360 440 / 440 100 / 100 Output Total 1205 / 1205 Balance 155 / 155 440 / 440 100 / 100 Weight 111.1 kg 111.1 kg Intake: IV 900 / 900 200 / 200 100 / 100 LR 1000 mL Inj 1,000 ML @ 30 900 / 900 mls/hr IV.SIG .Q24H PABLO Rx#: [id number] Ancef Inj 1,000 MG In NS Inj 200 / 200 100 / 100 100 ML @ 200 mls/hr IV.SIG Q6H PABLO Rx#:[id number] Oral 460 / 460 240 / 240 Output: Urine 1200 / 1200 Estimated Blood Loss / Other: # Voids 5 Date of Last Bowel Movement 08/01/18 08/01/18 # Bowel Movements 1 0 Weight On Admission 100.3 kg Narrative: Sitting up in bed at bedside NAD C/S Cervical brace in place, posterior incision dressings intact, no new drainage, Mild posterior trap spasm, mild warmth, no erythema Biceps Motor strength intact bilaterally, +sens, +nvi Results - Procedures Posterior cervical fusion C45, DTRAX instrumentation, bone graft. Assessment and Plan - Ortho Post Op Day # 1 - Assessment and Plan pod#1 s/p PCF C45, bone graft Doing well with his cervical spine. Vomiting due to eating pancakes and it 'getting stuck'. He is able to tolerate liquids and soft foods. If he can tolerate lunch well he can discharge home today. Continue his cervical brace for at least 6 weeks. real time analyst use. Ok to change his dressing after 48 hours and shower. PO pain meds as needed. Follow up in 2 weeks as scheduled.
--- NOTE | 2018-08-03 10:59 | P.DS ---
Date of admission: 08/02/18 15:01 Primary care physician: No Primary Care Physician Attending physician on discharge: Saravanan Martin Anticipated date of discharge: 08/03/18 Brief History from admission: Previous ACDF. Now presents for staged posterior cervical fusion C45. DS: Diagnosis - Discharge Diagnosis (1) Cervical spinal stenosis Status: Acute DS: Medications - Discharge Medications Prescriptions: oxycodone-acetaminophen 1 tab PO Q4H PRN #42 tab PRN Reason: Acute Pain DS: Summary Hospital Course: Surgical treatment was performed on the day of admission without complication. He recovered well in PACU and was transferred to the orthopedic floor. Pain was controlled with IV and oral medications. He struggled with vomiting the first morning but this was due to eating difficult foods such as breads and pancakes the day after surgery. He was able to tolerate all other soft tissues and liquids. After one day he was found to be stable and discharged home. I encouraged him to continue his brace forester aide for the next 6 weeks, to ice his cervical spine as needed, and to pursue a high fiber diet for an additional 3 days. He was given a prescription for oxycodone. - Time Spent with Patient Total time spent providing and/or coordinating discharge services: Greater than 30 minutes - Quality: VTE Deep Vein Thrombosis/Pulmonary Embolism Present on Admission: No Exam Vital signs: Vital Signs 08/02/18 14:41 08/02/18 14:42 08/02/18 14:45 Temperature 98.2 F 98 F 98 F Pulse Rate 102 H 10 L 98 H Respiratory Rate 14 14 14 Blood Pressure 169/104 H 146/105 H 181/105 H Pulse Oximetry 95 92 L 97 08/02/18 15:00 08/02/18 15:15 08/02/18 15:30 Temperature 98 F 98 F 98 F Pulse Rate 85 89 87 Respiratory Rate 14 14 14 Blood Pressure 155/101 H 151/94 H 136/94 H Pulse Oximetry 95 95 96 08/02/18 15:45 08/02/18 16:00 08/02/18 16:30 Temperature 98 F 98 F 98 F Pulse Rate 91 H 99 H 96 H Respiratory Rate 14 14 14 Blood Pressure 130/85 138/90 116/69 Pulse Oximetry 97 95 97 08/02/18 19:49 08/02/18 23:48 08/03/18 00:15 Temperature 97.3 F L 98.4 F Pulse Rate 95 H 92 H Respiratory Rate 18 18 18 Blood Pressure 117/59 L 119/75 Pulse Oximetry 93 L 94 L 08/03/18 04:04 08/03/18 08:00 Temperature 97.4 F L 97.4 F L Pulse Rate 85 87 Respiratory Rate 18 18 Blood Pressure 104/56 L 128/75 Pulse Oximetry 94 L 95 Intake & Output 08/02/18 08/03/18 08/03/18 18:59 06:59 18:59 Intake Total 1360 / 1360 440 / 440 100 / 100 Output Total 1205 / 1205 Balance 155 / 155 440 / 440 100 / 100 Weight 111.1 kg 111.1 kg Intake: IV 900 / 900 200 / 200 100 / 100 LR 1000 mL Inj 1,000 ML @ 30 900 / 900 mls/hr IV.SIG .Q24H PABLO Rx#: [id number] Ancef Inj 1,000 MG In NS Inj 200 / 200 100 / 100 100 ML @ 200 mls/hr IV.SIG Q6H PABLO Rx#:[id number] Oral 460 / 460 240 / 240 Output: Urine 1200 / 1200 Estimated Blood Loss 5 / 5 Other: # Voids 5 Date of Last Bowel Movement 08/01/18 08/01/18 # Bowel Movements 1 0 Weight On Admission 100.3 kg Results Procedures completed during hospitalization: Posterior cervical fusion C45, DTRAX instrumentation, bone graft. Discharge Plan - Discharge Order Discharge Orders: Discharge Order (Routine); Ordered 08/03/18 Ordered By: Saravanan Martin - Discharge Details Anticipated Discharge Date: 08/03/18 - Physicians Team Primary Care Provider: Primary Care Karlene,Rebecca Attending Provider: Saravanan Martin Other Providers: [employer] - Rxs /Orders / Referrals /Forms Prescriptions: New oxycodone-acetaminophen 10-325 mg Tablet 1 tab PO Q4H PRN (Reason: Acute Pain) Qty: 42 RF: 0 Continue clonazepam [Klonopin] 0.5 mg Tablet 0.5 mg PO HS PRN (Reason: Sleep) fluoxetine [Prozac] 40 mg Capsule 40 mg PO DAILY lisinopril 40 mg Tablet 40 mg PO DAILY methocarbamol [Robaxin] 500 mg Tablet 500 mg PO QID nitroglycerin [Nitrostat] 0.4 mg Tablet, Sublingual 0.4 mg SUBLINGUAL Q5-15M PRN (Reason: Chest Pain) oxycodone-acetaminophen [Percocet] 7.5-325 mg Tablet 1 - 2 tab PO Q6HR PRN (Reason: Pain) Qty: 42 RF: 0 oxycodone-acetaminophen [Percocet] 10-325 mg Tablet 1 tab PO Q4-6H PRN (Reason: Pain) Referrals: Primary Care Physici,No [Primary Care Provider] - See Instructions
[2018-08-03] MEDS: Senna/Docusate Sodium 8.6/50 MG Tablet PO SCH (12:37)
[2018-08-03] MEDS: Multivitamin/Minerals Therapeutic Tablet PO SCH (12:38)
[2018-08-03] MEDS: Methocarbamol 500 MG Tablet PO SCH (12:38)
[2018-08-03 13:16] VITALS: BP 130/77; PULSE 83; TEMP 97.6; O2SAT 93
--- NOTE | 2018-08-03 14:53 | XR ---
EXAM DATE: 08/02/2018 12:00 AM EDT AGE/SEX: 53 years / Male INDICATIONS: Posterior C4 C5 fusion. CLINICAL DATA: This is the patient's subsequent encounter. Patient reports that signs and symptoms h ave been present for 2 weeks and indicates a pain score of Nonresponsive. MEDICAL/SURGICAL HISTORY: None. . Cervical hardware placement. COMPARISON: [facility] [place], CERVICAL SPINE [facility] [place] [facility], 07/21/2018. . FINDINGS: Anterior cervical discectomy and intervertebral fusion hardware placement at C4-5 noted with hardware also seen projecting at the C4-5 facet joints bilaterally. CONCLUSION: Postsurgical changes are seen at C4-5. Electronically signed by: Charlie Gordillo MD 08/03/2018 2:52 PM EDT
== END 2018-08-03 13:13 | disposition home or self-care (01) ==
LOC: HSDI 08:31 → HSDC 08:31 → EDSTATUS 11:00 → N06 16:59
PROVIDERS: ADMIT Orthopaedic Surgery Orthopaedic Surgery of the Spine; ATTEND Orthopaedic Surgery Orthopaedic Surgery of the Spine